=== PATIENT | female | born 1975 | race Caucasian/White ===

== ENCOUNTER 2022-05-17 15:37 | Emergency (ER) | payer SELFPAY ==
[~2022-05-17] VITALS: Ht 157.5 cm; Wt 118.2 kg
[~2022-05-17 15:37] MED LIST: ATIVAN 0.50.5 MG/TAB PO; BACTRIM DS 8001 TAB PO; CEPHALEXIN500 M1 PO; ELIMITE TOP; FISH OIL1000 MG PO; LEXAPRO 10MG10 MG PO; LEXAPRO20 MG PO; MIRENA52 MG IU; NO HOME MEDICATIONS; PRENATAL VITAMI1 TA5 PO; PRIL40 PO; PROAIR HFA0.09 MG/AC IH
[2022-05-17 16:12] LABS: BASO # 0.1 K/mm3 (0.0-0.2); BASO % 0.6 % (0.0-2.0); EOS # 0.1 K/mm3 (0.0-0.7); GRAN # 7.3 K/mm3 (1.4-6.5); GRAN % 74.9 % (42.2-75.2); HEMATOCRIT 40.6 % (37.0-47.0); HEMOGLOBIN 13.4 g/dl (12.5-16.0); LYMPH # 1.7 K/mm3 (1.2-3.4); LYMPH % 17.4 % (20.0-51.0); MEAN CELL VOLUME 87 fl (80.0-100.0); MEAN CORPUSCULAR HEMOGLOBIN 29 pg (27-31); MEAN CORPUSCULAR HGB CONC 33 g/dl (33.0-37.0); MEAN PLATELET VOLUME 9.9 fl (7.4-10.4); MONO # 0.6 K/mm3 (0.1-0.6); MONO % 5.9 % (1.7-9.3); PLATELET COUNT 306 K/mm3 (130-400); RED BLOOD COUNT 4.68 M/mm3 (4.10-5.30); REDCELL DISTRIBUTION WIDTH-CV 13.5 % (11.5-14.5)
[2022-05-17 16:29] LABS: ALBUMIN 3.6 gm/dL (3.5-5.0); ANION GAP 11 mmol/L (7-16); BLOOD UREA NITROGEN 11 mg/dL (7-19); CARBON DIOXIDE 23 mmol/L (22-29); CHLORIDE 106 mmol/L (98-107); CREATININE, serum 0.89 mg/dL (0.57-1.11); GLUCOSE 100 mg/dL (70-99); PHOSPHOROUS 3.2 mg/dL (2.3-4.7); POTASSIUM 4.3 mmol/L (3.5-4.5); SODIUM 140 mmol/L (136-145)
[2022-05-17 16:37] LABS: TROPONIN-I < 0.010 ng/mL (0.00-0.033)
[2022-05-17] MEDS ORDERED: PRINIVIL10 MG PO (17:23)
[2022-05-17] MEDS ORDERED: PROAIR HFA0.09 MG/AC IH (17:24)
[2022-05-17 17:27] LABS: COLLECTION METHOD CLEAN CATCH
[2022-05-17 17:35] LABS: URINE APPEARANCE Clear (CLEAR/HAZY); URINE BLOOD TRACE-INTACT (NEGATIVE); URINE COLOR Yellow (YELLOW); URINE GLUCOSE Negative (NEGATIVE); URINE KETONE 1+ (NEGATIVE); URINE NITRATE Negative (NEGATIVE); URINE PROTEIN(semi-quant) Negative (NEGATIVE); URINE UROBILINOGEN 0.2 E.U/dL (0.2-1.0)
[2022-05-17 17:37] LABS: MUCOUS Present (NOT PRESENT); URINE BACTERIA Rare /hpf (NONE SEEN); URINE RBC 0-2 /hpf (0-2)
[2022-05-17 18:25] VITALS: BP 93/60; PULSE 103; TEMP 98.7
== END 2022-05-17 18:30 | disposition home or self-care (01) ==
LOC: COL.ER 15:37
PROVIDERS: Emergency Medicine
DX: J45.909 Unspecified asthma, uncomplicated (principal); Z20.822 Contact with and (suspected) exposure to COVID-19
CPT/HCPCS: J8540